=== PATIENT | female | born 2000 | race Two or more races ===

== ENCOUNTER 2019-01-12 17:09 | Emergency (ER) | payer BC ==
[2019-01-12 17:38] VITALS: BP 106/64
--- NOTE | 2019-01-12 17:49 | UC ---
Throat Pain/Nasal Michael HPI - HPI Summary HPI Summary: 2 day history of congestion, increasing tonsillar pain, dysphagia and headache. History of tonsillitis. No know exposures. Writing her final exams. - History of Current Complaint Stated Complaint: ACHY/SINUS/SORE THROAT Time Seen by Provider: 01/12/19 17:34 Hx Obtained From: Patient Hx Last Menstrual Period: 12/22/18 Onset/Duration: Gradual Onset, Lasting Days - 2 Pain Intensity: 5 Cough: Nonproductive Associated Signs & Symptoms: Positive: Dysphagia, Hoarseness, Sinus Discomfort - Epiglottits Risk Factors Epiglottis Risk Factors: Negative - Allergies/Home Medications Allergies/Adverse Reactions: Allergies Allergy/AdvReac Type Severity Reaction Status Date / Time fish derived Allergy Unknown Rash Verified 01/12/19 17:28 Home Medications: Home Medications Ibuprofen TAB* [Advil TAB*] 400 mg PO Q6H PRN 01/12/19 [History Confirmed ] Norethindrone-E.estradiol-Iron [Junel Fe 24 1-20 mg-Mcg(24)] 1 tab PO DAILY 05/25 [History Confirmed 01/12/19] PMH/Surg Hx/FS Hx/Imm Hx Previously Healthy: Yes GI/ History: Other - history of pyelonephritis in the past - Surgical History Surgical History: Yes Surgery Procedure, Year, and Place: WISDOM TEETH EXTRACTIONS - Family History Known Family History: Positive: Non-Contributory - Social History Occupation: Student Lives: Dormitory/Roommates Alcohol Use: Rare Substance Use Type: None Smoking Status (MU): Never Smoked Tobacco Household Exposure Type: Cigarettes Review of Systems All Other Systems Reviewed And Are Negative: Yes Constitutional: Positive: Chills, Fatigue ENT: Positive: Sore Throat, Ear Ache, Sinus Congestion Cardiovascular: Positive: Negative Gastrointestinal: Positive: Negative Genitourinary: Positive: Negative Motor: Positive: Negative Neurovascular: Positive: Negative Musculoskeletal: Positive: Myalgia Neurological: Positive: Headache Psychological: Positive: Negative Physical Exam Triage Information Reviewed: Yes Appearance: Ill-Appearing Vital Signs: Initial Vital Signs Temp 98.1 F 01/12/19 17:30 Pulse 60 01/12/19 17:30 Resp 16 01/12/19 17:30 BP 106/64 01/12/19 17:30 Pulse Ox 100 01/12/19 17:30 ENT: Positive: Pharyngeal erythema, TM dull - bilaterally retracted., Tonsillar swelling - left tonsil with erythema, no exudate, marked enlargement.. Negative : Tonsillar exudate Neck: Positive: Supple, Nontender, Enlarged Nodes @ - left tonsillar node, several nodes right anterior cervical Respiratory: Positive: Lungs clear, Normal breath sounds Cardiovascular: Positive: RRR, No Murmur Abdomen Description: Positive: Nontender, No Organomegaly, Soft Musculoskeletal Exam: Normal Neurological: Positive: Alert, Muscle Tone Normal Psychological Exam: Normal Skin Exam: Normal Throat Pain/Nasal Course/Dx - Course Course Of Treatment: amoxicillin for tonsillitis, rest, fluids, ibuprofen. - Differential Dx/Diagnosis Differential Diagnosis/HQI/PQRI: Influenza, Pharyngitis, Sinusitis, Tonsillitis Provider Diagnosis: Acute tonsillitis Discharge - Sign-Out/Discharge Documenting (check all that apply): Patient Departure All imaging exams completed and their final reports reviewed: No Studies - Discharge Plan Condition: Stable Disposition: HOME Prescriptions: Amoxicillin PO (*) [Amoxicillin 875 MG (*)] 875 mg PO BID #20 tab Patient Education Materials: Tonsillitis (ED) Referrals: No Primary Care Phys,NOPCP [Primary Care Provider] - Additional Instructions: Use amoxicillin for treatment of tonsillitis. You might get better relief of symptoms using ibuprofen 600mg three times daily. You can ask the pharmacist for sudafe (pseudoephedrine) 30mg to use twice daily to relieve sinus pain. - Billing Disposition and Condition Condition: STABLE Disposition: Home
== END 2019-01-12 18:05 | disposition home or self-care (01) ==
LOC: UCCORT 17:09
DX: J03.90 Acute tonsillitis, unspecified (principal); R13.10 Dysphagia, unspecified; R51 Headache; Z91.013 Allergy to seafood; Z87.448 Personal history of other diseases of urinary system
CPT/HCPCS: 99202; G0463